=== PATIENT | male | born 1995 | race Caucasian/White ===

== ENCOUNTER 2017-12-28 18:54 | Emergency (ER) | payer OTHER ==
[~2017-12-28] VITALS: Ht 180.3 cm; Wt 88.0 kg
[~2017-12-28 18:54] MED LIST: IBUPROFEN800 M1 PO; OXYCODONE HCL5 M1 PO
--- NOTE | 2017-12-28 20:30 | ED NOSE COMPLAINT ---
History of Present Illness General Chief Complaint: General Adult Stated Complaint: NOSE PAIN/BLEEDING Source: patient Exam Limitations: no limitations Vital Signs & Intake/Output Vital Signs & Intake/Output Vital Signs Date Time Temp Pulse Resp B/P B/P Pulse O2 O2 Flow FiO2 Mean Ox Delivery Rate 12/28 2157 98.6 60 20 134/87 100 Room Air 12/28 1857 98.5 88 16 132/83 98 Room Air ED Intake and Output 12/29 0000 12/28 1200 Intake Total Output Total Balance Patient 194 lb Weight Weight Reported by Patient Measurement Method Allergies Coded Allergies: Penicillins (Intermediate, RASH 04/16/16) Reconcile Medications No Known Home Medications Triage Note: PT STATES HE GOT HIT IN THE NOSE AT A [employer] LAST NIGHT AND TODAY HIS NOSE IS BLEEDING NON STOP AT WORK TODAY. Triage Nurses Notes Reviewed? yes Onset: Gradual Duration: day(s): Timing: recent history Severity: moderate HPI: 22-year-old male presents emergency department complaining of nose injury yesterday. Patient states she was at a concert and was dancing when another person bumped his nose. Patient has epistaxis at that time however was able to controL bleeding. Patient states that today he had intermittent epistaxis while at work. 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 Currently no epistaxis. Patient reports mild pain in nose currently. He denies fall, blackout, loss of consciousness. (Dana SNEED,Yelitza Milner) Past History Travel History Traveled to [place] past 21 day No Medical History Any Pertinent Medical History? none Neurological: NONE EENT: NONE Cardiovascular: NONE Respiratory: NONE Gastrointestinal: NONE Hepatic: NONE Renal: NONE Musculoskeletal: NONE Psychiatric: NONE Endocrine: NONE Surgical History Surgical History: none Psychosocial History What is your primary language Pashto Tobacco Use: Current Daily Use Daily Tobacco Use Amount/Type: => 5 Cigarettes daily ETOH Use: occasional use Illicit Drug Use: marijuana Family History Hx Contributory? No (Yelitza Arellano) Review of Systems Review of Systems Constitutional: Reports: no symptoms. EENTM: Reports: see HPI. Respiratory: Reports: no symptoms. Cardiovascular: Reports: no symptoms. GI: Reports: no symptoms. Genitourinary: Reports: no symptoms. Musculoskeletal: Reports: no symptoms. Skin: Reports: no symptoms. Neurological/Psychological: Reports: no symptoms. Hematologic/Endocrine: Reports: no symptoms. Immunologic/Allergic: Reports: no symptoms. All Other Systems: Reviewed and Negative (Dana SNEED,Yelitza Milner) Physical Exam Physical Exam General Appearance: well developed/nourished, no apparent distress, alert, awake Head: atraumatic, normal appearance Eyes: Bilateral: normal appearance. Nose: tenderness to nasal bones, dried blood in left nare, no active bleeding, no septal hematoma, no deformity or swelling Mouth/Throat: normal mouth inspection Neck: normal inspection, supple, full range of motion Cardiovascular/Respiratory: no respiratory distress Back: normal inspection, normal range of motion Neurologic/Psych: awake, alert, oriented x 3 Skin: intact, normal color, warm/dry (Dana SNEED,Yelitza Milner) Progress Differential Diagnoses I considered the following diagnoses in my evaluation of the patient: [Nasal fracture, epistaxis, septal hematoma, concussion] Plan of Care: Orders Procedure Date/time Status XRY-NASAL BONES 12/29 2027 Active No nasal bone fracture detected on x-ray. Patient informed that his intermittent epistaxis is likely related to the nose injury he had yesterday however this should gradually resolve. He was educated on how to stop nosebleeds. He was given strict return precautions. The patient agrees with the plan of care. No active bleeding at time of discharge. Diagnostic Imaging: Viewed by Me: Radiology Read. Discussed w/RAD: Radiology Read. Radiology Impression: PATIENT: TIERRA MANCILLA PRESENT AGE: 22 PATIENT ACCOUNT NO: [id number] : 97 LOCATION: [facility] ORDERING PHYSICIAN: Yelitza SNEED SERVICE DATE: 12/28/17 EXAM TYPE: RAD - XRY-NASAL BONES EXAMINATION: XR NASAL BONES CLINICAL INFORMATION: Injury to nose yesterday with epistaxis. COMPARISON: None TECHNIQUE: 3 views of the nasal bones were obtained. FINDINGS: There is no evidence of fracture or malalignment. The paranasal sinuses and mastoid air cells are clear. No discrete soft tissue abnormality. IMPRESSION: No evidence of nasal bone fracture. 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 <Electronically signed in Other Vendor System> SIGNED BY: Marlon Haddad MD 12/28/17 1152 Initial ED EKG: none (Dana SNEED,Yelitza Milner) Departure Departure Disposition: HOME OR SELF CARE Condition: Stable Clinical Impression Primary Impression: Nose injury Qualifiers: Encounter type: initial encounter Qualified Code: S09.92XA - Unspecified injury of nose, initial encounter Secondary Impressions: Epistaxis Referrals: Robina RASMUSSEN,Aman Colón (PCP/Family) Additional Instructions: If you develop further nosebleeds apply direct pressure for 5 minutes straight. Follow-up with your primary care doctor. Return if worsening symptoms or concerns. Please note that there might be incidental findings in your evaluation that are unrelated to the current emergency department visit. Please notify your primary care doctor about this emergency department visit in order to obtain and review all of the testing performed so that these incidental findings can be monitored as needed. If you had an x-ray performed, please understand that some fractures may not be seen on the initial set of x-rays. If your symptoms persist you might need a repeat set of x-rays to check for such a fracture. If you had a laceration evaluated, please understand that foreign bodies such as glass or wood may not be visible to the naked eye or on plain x-rays. If the wound becomes red, swollen, increasingly more painful or if there is any drainage from the wound, please have it reevaluated by a physician for the possibility of a retained foreign body. If you're unable to follow up as outlined in the discharge instructions please return to the emergency department. Thank you for choosing the [facility] Emergency Department for your care. It was a pleasure to serve you today. Departure Forms: Customer Survey General Discharge Information Prescriptions: Current Visit Scripts No Known Home Medications (Yelitza Arellano) PA/COMMUNITY DEVELOPMENT SPECIALIST Co-Sign Statement Statement: ED Attending supervision documentation- [] I saw and evaluated the patient. I have also reviewed all the pertinent lab results and diagnostic results. I agree with the findings and the plan of care as documented in the PA's/COMMUNITY DEVELOPMENT SPECIALIST's documentation. [x] I have reviewed the ED Record and agree with the PA's/COMMUNITY DEVELOPMENT SPECIALIST's documentation. [] Additions or exceptions (if any) to the PAs/COMMUNITY DEVELOPMENT SPECIALIST's note and plan are summarized below: [] (Silvio RASMUSSEN,Pool Nayak)
--- NOTE | 2017-12-28 21:52 | RADIOLOGY REPORT ---
EXAMINATION: XR NASAL BONES CLINICAL INFORMATION: Injury to nose yesterday with epistaxis. COMPARISON: None TECHNIQUE: 3 views of the nasal bones were obtained. FINDINGS: There is no evidence of fracture or malalignment. The paranasal sinuses and mastoid air cells are clear. No discrete soft tissue abnormality. IMPRESSION: No evidence of nasal bone fracture.
[2017-12-28 21:57] VITALS: BP 134/87
== END 2017-12-28 21:58 ==
LOC: ERH 18:54
DX: S09.92XA Unspecified injury of nose, initial encounter (principal); R04.0 Epistaxis; W51.XXXA Accidental striking against or bumped into by another person, initial encounter; Y93.41 Activity, dancing
CPT/HCPCS: 70160